=== PATIENT | female | born 1970 | race Caucasian/White ===

== ENCOUNTER 2020-02-26 00:36 | Emergency (ER) | payer BC, OTHER ==
--- NOTE | 2020-02-26 01:00 | NUR ---
Patient was called several times to be triaged. Patient was not present. Patient was not Triaged or seen by ERMD.
== END 2020-02-26 01:00 | disposition left against medical advice (07) ==
LOC: ER 00:45
DX: Z75.3 Unavailability and inaccessibility of health-care facilities (principal)